=== PATIENT | male | born 1960 | race Hispanic/Latino ===

== ENCOUNTER 2016-08-19 06:35 | Emergency (ER) | payer MEDICARE ==
[2016-08-19 07:54] VITALS: BP 143/82
== END 2016-08-19 10:34 | disposition left against medical advice (07) ==
LOC: ED 06:35
DX: M26.621 Arthralgia of right temporomandibular joint (principal); F90.9 Attention-deficit hyperactivity disorder, unspecified type; Z72.0 Tobacco use; Z91.041 Radiographic dye allergy status; Z88.2 Allergy status to sulfonamides; Z53.21 Procedure and treatment not carried out due to patient leaving prior to being seen by health care provider

== ENCOUNTER 2016-11-09 23:45 | Emergency (ER) | payer MEDICARE ==
[2016-11-10] MEDS ORDERED: NORCO 5/325 PO ONE (00:42)
[2016-11-10] MEDS ORDERED: TORADOL IM ONE (00:42)
--- NOTE | 2016-11-10 00:47 | Emergency Department Report ---
ED ENT HPI - General Chief complaint: Dental/Oral Stated complaint: JAW PAIN Time Seen by Provider: 11/10/16 00:42 Source: patient Mode of arrival: Ambulatory Limitations: No Limitations - History of Present Illness Initial comments: 55-year-old male with past medical history of hypertension presenting to the emergency department complaining that his jaw feels locked up. Patient states symptoms started this morning. No inciting factor. Patient states he's had the symptoms in the past where his jaw which is feels if it's closed shut however he is able to open his jaw but then it seemed to snap back closed again. Patient states he does have a history of grinding his teeth. Patient states this strain is causing pain that travels down to his neck. Patient states he is able to tolerate by liquids and pudding. She states when his jaw closes up and cramps like this only helps as Toradol and narcotics to help open up his jaw again. - Related Data Previous Rx's Medication Instructions Recorded Last Taken Type HYDROcodone/APAP 5-325 [Zurich 1 each PO Q6HR PRN #3 tablet 11/10/16 Unknown Rx 5/325] Allergies Allergy/AdvReac Type Severity Reaction Status Date / Time barium sulfate AdvReac Vomiting Verified 08/19/16 07:54 IV DYE Allergy Anaphylaxis Uncoded 07/12/16 11:11 ED Dental HPI - General Chief complaint: Dental/Oral Stated complaint: JAW PAIN Time Seen by Provider: 11/10/16 00:42 Source: patient Mode of arrival: Ambulatory Limitations: No Limitations - Related Data Previous Rx's Medication Instructions Recorded Last Taken Type HYDROcodone/APAP 5-325 [Zurich 1 each PO Q6HR PRN #3 tablet 11/10/16 Unknown Rx 5/325] Allergies Allergy/AdvReac Type Severity Reaction Status Date / Time barium sulfate AdvReac Vomiting Verified 08/19/16 07:54 IV DYE Allergy Anaphylaxis Uncoded 07/12/16 11:11 ED Review of Systems ROS: Stated complaint: JAW PAIN Other details as noted in HPI Constitutional: denies: chills, fever Eyes: denies: eye pain, eye discharge, vision change ENT: dental pain. denies: ear pain, throat pain, hearing loss, congestion Respiratory: denies: cough, shortness of breath, wheezing Cardiovascular: denies: chest pain, palpitations Endocrine: no symptoms reported Gastrointestinal: denies: abdominal pain, nausea, diarrhea Genitourinary: denies: urgency, dysuria Musculoskeletal: denies: back pain, joint swelling, arthralgia Skin: denies: rash, lesions Neurological: denies: headache, weakness, paresthesias Psychiatric: denies: anxiety, depression Hematological/Lymphatic: denies: easy bleeding, easy bruising ED Past Medical Hx - Past Medical History Previous Medical History?: Yes Hx Psychiatric Treatment: Yes (ADHD) Hx HIV: Yes Additional medical history: LOCKED JAW - Surgical History Past Surgical History?: No - Social History Smoking Status: Current Every Day Smoker Substance Use Type: None - Medications Home Medications: Home Medications Medication Instructions Recorded Confirmed Last Taken Type HYDROcodone/APAP 5-325 [Zurich 1 each PO Q6HR PRN #3 tablet 11/10/16 Unknown Rx 5/325] ED Physical Exam - General Limitations: No Limitations General appearance: alert, in no apparent distress - Head Head exam: Present: atraumatic, normocephalic - Eye Eye exam: Present: normal appearance - ENT ENT exam: Present: mucous membranes moist, other (pt speaks with his jaw clenced however ever few words I do see that there is movement of his mouth. His teeth align appropriately, no evidence of dislocation). Absent: mucous membranes dry - Neck Neck exam: Present: normal inspection - Respiratory Respiratory exam: Present: normal lung sounds bilaterally. Absent: respiratory distress - Cardiovascular Cardiovascular Exam: Present: regular rate, normal rhythm. Absent: systolic murmur, diastolic murmur, rubs, gallop - GI/Abdominal GI/Abdominal exam: Present: soft, normal bowel sounds - Rectal Rectal exam: Present: deferred - Extremities Exam Extremities exam: Present: normal inspection - Back Exam Back exam: Present: normal inspection - Neurological Exam Neurological exam: Present: alert, oriented X3 - Psychiatric Psychiatric exam: Present: normal affect, normal mood - Skin Skin exam: Present: warm, dry, intact, normal color. Absent: rash ED Course Vital Signs 11/10/16 11/10/16 00:11 00:51 Temperature 98.9 F Pulse Rate 92 H Respiratory 20 18 Rate Blood Pressure 143/92 O2 Sat by Pulse 100 Oximetry - Reevaluation(s) Reevaluation #1: 11/10/16 01:33 Patient states symptoms have improved and is requesting discharge home. ED Medical Decision Making - Medical Decision Making 55-year-old male presenting to the emergency department complaining of clenched jaw. This is likely a somatoform disorder. I have low suspicion for dislocation of the jaw as patient's teeth are well aligned and often when he speaks jaw opens appropriately and then closes back again and I witness him grinding on his teeth. States the only thing that helps relieve his symptoms as when he gets Toradol and narcotics, specifically when he gets narcotics take home. - Differential Diagnosis TMJ, mandibular dislocation, dystonia Critical Care Time: No Critical care attestation.: If time is entered above; I have spent that time in minutes in the direct care of this critically ill patient, excluding procedure time. ED Disposition Clinical Impression: Somatoform disorder Disposition: TO HOME OR SELFCARE Is pt being admited?: No Does the pt Need Aspirin: No Condition: Stable Instructions: Toothache (ED) Prescriptions: HYDROcodone/APAP 5-325 [Zurich 5/325] 1 each PO Q6HR PRN #3 tablet PRN Reason: Pain Referrals: PRIMARY CAREMD [Primary Care Provider] - 3-5 Days CHELI KIRKLAND MD, PHD [Staff Physician] - 24 Hours Forms: Work/School Release Form(ED) Time of Disposition: 01:36
[2016-11-10 03:00] VITALS: BP 136/76
== END 2016-11-10 02:59 | disposition home or self-care (01) ==
LOC: ED 23:45
DX: F45.9 Somatoform disorder, unspecified (principal); F17.200 Nicotine dependence, unspecified, uncomplicated
CPT/HCPCS: 96372; 99282; J1885

== ENCOUNTER 2016-12-18 01:28 | Emergency (ER) | payer MEDICARE ==
[2016-12-18 01:43] VITALS: BP 132/84
== END 2016-12-18 05:30 | disposition left against medical advice (07) ==
LOC: ED 01:28
DX: R19.7 Diarrhea, unspecified (principal); Z53.21 Procedure and treatment not carried out due to patient leaving prior to being seen by health care provider

== ENCOUNTER 2016-12-23 17:25 | Emergency (ER) | payer MEDICARE ==
[2016-12-23] MEDS ORDERED: TORADOL IM ONE (20:01)
--- NOTE | 2016-12-23 20:01 | Emergency Department Report ---
HPI - General Chief Complaint: Dental/Oral Time Seen by Provider: 12/23/16 19:36 - HPI HPI: Patient reports that he has TMJ jaw pain. He said he's had this for a while and he is having increasing pain over the last 2 days. He says he has a primary care doctor and that he usually gets a shot of Toradol and then 3 days worth of [place]. He said his pain is 4 out of 10 and achy and worse with opening and closing his mouth. Patient has a history of HIV, GERD, ADHD, TMJ and cervical disc degeneration. Denies any fever or chills. Denies any difficulty swallowing. No mhyr-lth-emqoufk medication use prior to coming to the emergency room. Patient was last here on 11/10/2016 and receive hydrocodone and Motrin. ED Past Medical Hx - Past Medical History Previous Medical History?: Yes Hx GERD: Yes Hx Psychiatric Treatment: Yes (ADHD) Hx HIV: Yes Additional medical history: LOCKED JAW. somatoform disorder. Cervical Spondylosis & disc degeneration - Surgical History Past Surgical History?: Yes - Family History Family history: no significant - Social History Smoking Status: Current Every Day Smoker Substance Use Type: None - Medications Home Medications: Home Medications Medication Instructions Recorded Confirmed Last Taken Type HYDROcodone/APAP 5-325 [[place] 1 each PO Q6HR PRN #3 tablet 11/10/16 Unknown Rx 5/325] Ibuprofen [Motrin 800 MG tab] 800 mg PO Q8HR PRN #15 tablet 12/23/16 Unknown Rx ED Review of Systems ROS: Stated complaint: TMJ Other details as noted in HPI Comment: All other systems reviewed and negative Constitutional: denies: chills, fever ENT: other (jaw pain). denies: ear pain, throat pain, congestion Respiratory: no symptoms reported Cardiovascular: denies: chest pain, palpitations, edema, syncope Gastrointestinal: denies: abdominal pain, nausea, vomiting Musculoskeletal: arthralgia (temporal mandibular area). denies: back pain, joint swelling, myalgia Skin: denies: rash Neurological: denies: headache, weakness, numbness, paresthesias, confusion, abnormal gait, vertigo Physical Exam - Physical Exam Vital Signs: Vital Signs 12/23/16 19:14 Temperature 98.7 F Pulse Rate 79 Respiratory 16 Rate Blood Pressure 124/76 [Right] O2 Sat by Pulse 97 Oximetry General: This is a 56-year-old male in no acute distress. Physical Exam: Head: Normocephalic, atraumatic. No abrasions, laceration or contusion Neck: Supple, No adenopathy. Full range of motion. No C-spine tenderness. Eyes: Rafael sclera nonicteric, no conjunctival injection, bilateral pupils equal and reactive to light. Bilateral EOM intact. Ears: Bilateral TMs pearly pandey, bilaterally EAC without any redness swelling or drainage. No facial deformity noted. Patient able to cut open and close his mouth without any difficulties. Face nontender to palpate Nose: Rafael nasal mucosa without any erythema or congestion. No drainage. Mouth: Moist, No pharyngeal erythema Uvula is midline and oral airways patent. Tongue normal CV:S1, S2. regular rate and rhythm. Lungs: Clear to auscultate to lung jenkins. Normal work of breathing. Abdomen: Soft, normal bowel sounds in all quadrants. No rigidity or distention. Extremity: No clubbing, cyanosis or edema. +2 pulses in all extremities. No neurovascular compromise. Capillary refill is less than 3 seconds. Skin: Clean dry and intact, no rash or lesions. PSYCH: Smiling and appropriate for age ED Course Vital Signs 12/23/16 19:14 Temperature 98.7 F Pulse Rate 79 Respiratory 16 Rate Blood Pressure 124/76 [Right] O2 Sat by Pulse 97 Oximetry - Reevaluation(s) Reevaluation #1: 12/23/16 20:24 Patient given Toradol 60 mg IM in emergency room for pain ED Medical Decision Making - Medical Decision Making ED course: Patient with chronic TMJ with multiple other medical problems. He is here for pain management. He said his TMJ pain has been worsening over the last 2 days. He is requesting an Sedgwick for 3 days. I discussed the patient that he will need to follow-up with his primary care physician and have primary care referral him to a specialist to manage his chronic TMJ. He said he is working on it. Patient has no facial deformity and is able to open and close his mouth without any difficulties. He was given Toradol 60 mg IM in emergency room. Agreement was made that patient will be discharged home in Motrin. Assessment/plan 1. TMJ pain Patient discharged home in stable condition with prescription for Motrin and to follow-up with his primary care physician. Critical care attestation.: If time is entered above; I have spent that time in minutes in the direct care of this critically ill patient, excluding procedure time. ED Disposition Clinical Impression: Temporomandibular joint disorder (TMJ) TMJ arthralgia Qualifiers: Laterality: bilateral Qualified Code(s): M26.623 - Arthralgia of bilateral temporomandibular joint Disposition: DC-01 TO HOME OR SELFCARE Is pt being admited?: No Does the pt Need Aspirin: No Condition: Stable Instructions: Arthralgia (ED), Temporomandibular Disorder (ED) Additional Instructions: Please take Motrin with food Follow-up with her primary care physician regarding chronic TMJ Prescriptions: Ibuprofen [Motrin 800 MG tab] 800 mg PO Q8HR PRN #15 tablet PRN Reason: Pain Referrals: PRIMARY CAREMD [Primary Care Provider] - 12/26/16
[2016-12-23 22:41] VITALS: BP 132/66
== END 2016-12-23 20:40 | disposition home or self-care (01) ==
LOC: ED 17:25
DX: M26.623 Arthralgia of bilateral temporomandibular joint (principal); M26.609 Unspecified temporomandibular joint disorder, unspecified side; K21.9 Gastro-esophageal reflux disease without esophagitis; F17.200 Nicotine dependence, unspecified, uncomplicated
CPT/HCPCS: 96372; 99282; J1885

== ENCOUNTER 2016-12-30 12:41 | Emergency (ER) | payer MEDICARE ==
[2016-12-30] MEDS ORDERED: BENADRYL IV ONE (19:03)
[2016-12-30] MEDS ORDERED: ATARAX PO ONE (19:03)
[2016-12-30] MEDS ORDERED: PEPCID PO ONE (19:03)
[2016-12-30] MEDS ORDERED: TYLENOL PO ONE (19:04)
--- NOTE | 2016-12-30 19:05 | Emergency Department Report ---
- General Chief complaint: Skin Rash Stated complaint: RASH Time Seen by Provider: 12/30/16 18:54 Source: patient Mode of arrival: Ambulatory Limitations: No Limitations - History of Present Illness Initial comments: 56-year-old male past medical history HIV on HAART, ADHD presents with complaint of itchy rash to chest and back times one day. Denies fever or chills. States it is very itchy. States he is homeless. States he has an undetectable viral load and last CD4 was over 300. Denies any fevers or chills no nausea or vomiting. Patient is requesting narcotic pain medicine. Awake alert and oriented 3, patient found sleeping comfortably in room. Eating snacks during interview. MD complaint: rash Onset/Timin -: days(s) Location: chest, back Severity: moderate Severity scale (0 -10): 6 Quality: other (itchy) Associated symptoms: itching - Related Data Previous Rx's Medication Instructions Recorded Last Taken Type HYDROcodone/APAP 5-325 [Kane 1 each PO Q6HR PRN #3 tablet 11/10/16 Unknown Rx 5/325] Ibuprofen [Motrin 800 MG tab] 800 mg PO Q8HR PRN #15 tablet 12/23/16 Unknown Rx Calcium Carb/Mag Ox/Zinc Sulf 1 each PO BID #60 12/30/16 Unknown Rx [Nhchbci-Umwunphlk-Kmty Tablet] Hydrocortisone 1% [Hydrocortisone 1 applicatio TP TID PRN #1 tube 12/30/16 Unknown Rx 1% CREAM] Hydroxyzine HCl 25 mg PO BID PRN #20 tablet 12/30/16 Unknown Rx Naproxen [Naprosyn TAB] 500 mg PO BID PRN #25 tablet 12/30/16 Unknown Rx Permethrin 5% [Acticin 5% CREAM] 1 applicatio TP ONCE #1 tube 12/30/16 Unknown Rx Allergies Allergy/AdvReac Type Severity Reaction Status Date / Time barium sulfate AdvReac Vomiting Verified 12/30/16 13:32 IV DYE Allergy Anaphylaxis Uncoded 12/30/16 13:32 Abscess Boil HPI - HPI Chief Complaint: Skin Rash Stated Complaint: RASH Time Seen by Provider: 12/30/16 18:54 Home Medications: Previous Rx's Medication Instructions Recorded Last Taken Type HYDROcodone/APAP 5-325 [Kane 1 each PO Q6HR PRN #3 tablet 11/10/16 Unknown Rx 5/325] Ibuprofen [Motrin 800 MG tab] 800 mg PO Q8HR PRN #15 tablet 12/23/16 Unknown Rx Calcium Carb/Mag Ox/Zinc Sulf 1 each PO BID #60 12/30/16 Unknown Rx [Unjxgir-Iepmaswne-Ehuf Tablet] Hydrocortisone 1% [Hydrocortisone 1 applicatio TP TID PRN #1 tube 12/30/16 Unknown Rx 1% CREAM] Hydroxyzine HCl 25 mg PO BID PRN #20 tablet 12/30/16 Unknown Rx Naproxen [Naprosyn TAB] 500 mg PO BID PRN #25 tablet 12/30/16 Unknown Rx Permethrin 5% [Acticin 5% CREAM] 1 applicatio TP ONCE #1 tube 12/30/16 Unknown Rx Allergies/Adverse Reactions: Allergies Allergy/AdvReac Type Severity Reaction Status Date / Time barium sulfate AdvReac Vomiting Verified 12/30/16 13:32 IV DYE Allergy Anaphylaxis Uncoded 12/30/16 13:32 ED Review of Systems ROS: Stated complaint: RASH Other details as noted in HPI Constitutional: denies: chills, fever Eyes: denies: eye pain, eye discharge, vision change ENT: denies: ear pain, throat pain Respiratory: denies: cough, shortness of breath, wheezing Cardiovascular: denies: chest pain, palpitations Endocrine: no symptoms reported Gastrointestinal: denies: abdominal pain, nausea, diarrhea Genitourinary: denies: urgency, dysuria Musculoskeletal: denies: back pain, joint swelling, arthralgia Skin: as per HPI, rash. denies: lesions Neurological: denies: headache, weakness, paresthesias Psychiatric: denies: anxiety, depression Hematological/Lymphatic: denies: easy bleeding, easy bruising ED Past Medical Hx - Past Medical History Previous Medical History?: Yes Hx GERD: Yes Hx Psychiatric Treatment: Yes (ADHD) Hx HIV: Yes Additional medical history: LOCKED JAW. somatoform disorder. Cervical Spondylosis & disc degeneration - Surgical History Past Surgical History?: No - Social History Smoking Status: Current Every Day Smoker Substance Use Type: None - Medications Home Medications: Home Medications Medication Instructions Recorded Confirmed Last Taken Type HYDROcodone/APAP 5-325 [Kane 1 each PO Q6HR PRN #3 tablet 11/10/16 Unknown Rx 5/325] Ibuprofen [Motrin 800 MG tab] 800 mg PO Q8HR PRN #15 tablet 12/23/16 Unknown Rx Calcium Carb/Mag Ox/Zinc Sulf 1 each PO BID #60 12/30/16 Unknown Rx [Dkhmvdg-Krumlzmaj-Vlkp Tablet] Hydrocortisone 1% [Hydrocortisone 1 applicatio TP TID PRN #1 tube 12/30/16 Unknown Rx 1% CREAM] Hydroxyzine HCl 25 mg PO BID PRN #20 tablet 12/30/16 Unknown Rx Naproxen [Naprosyn TAB] 500 mg PO BID PRN #25 tablet 12/30/16 Unknown Rx Permethrin 5% [Acticin 5% CREAM] 1 applicatio TP ONCE #1 tube 12/30/16 Unknown Rx ED Physical Exam - General Limitations: No Limitations General appearance: alert, in no apparent distress - Head Head exam: Present: atraumatic, normocephalic - Eye Eye exam: Present: normal appearance, PERRL, EOMI - ENT ENT exam: Present: mucous membranes moist - Neck Neck exam: Present: normal inspection - Respiratory Respiratory exam: Present: normal lung sounds bilaterally. Absent: respiratory distress - Cardiovascular Cardiovascular Exam: Present: regular rate, normal rhythm. Absent: systolic murmur, diastolic murmur, rubs, gallop - GI/Abdominal GI/Abdominal exam: Present: soft, normal bowel sounds - Rectal Rectal exam: Present: deferred - Extremities Exam Extremities exam: Present: normal inspection - Back Exam Back exam: Present: normal inspection - Neurological Exam Neurological exam: Present: alert, oriented X3, CN II-XII intact, normal gait - Psychiatric Psychiatric exam: Present: normal affect, normal mood - Skin Skin exam: Present: warm, dry, intact, normal color, rash (pruritic rash on chest and back and upper extremities no visible vesicular lesions.) ED Course Vital Signs 12/30/16 13:29 Temperature 98.5 F Pulse Rate 90 Respiratory 16 Rate Blood Pressure 116/59 O2 Sat by Pulse 100 Oximetry ED Medical Decision Making - Lab Data Result diagrams: 12/30/16 19:44 12/30/16 19:44 - Medical Decision Making A/P: Scabies rash, incidental hypocalcemia 1-case discussed with attending. Patient is comfortable no chest pain no shortness of breath no palpitations. Provided with calcium carbonate supplementation prescription and advised to follow-up in clinic for repeat labs , informed he has mild hypocalcemia. I advised patient to return to the ED for any palpitations chest pain shortness of breath or generalized weakness. 2-during exam patient was lying comfortably on bed itching of his chest but had no other complaints. Eating snacks comfortably during entire interview process. Patient requesting narcotic pain medicine. When I asked him to elaborate why he needed narcotics patient was unable to give me a direct answer. I suspect patient may be exhibiting drug-seeking behavior 3-hydroxyzine when necessary, naproxen when necessary, hydrocortisone when necessary 4-empiric treatment for scabies with permethrin cream Critical care attestation.: If time is entered above; I have spent that time in minutes in the direct care of this critically ill patient, excluding procedure time. ED Disposition Clinical Impression: Scabies, Rash and nonspecific skin eruption, Hypocalcemia Disposition: TO HOME OR SELFCARE Is pt being admited?: No Does the pt Need Aspirin: No Condition: Stable Instructions: Scabies (ED), Hypocalcemia (ED) Prescriptions: Calcium Carb/Mag Ox/Zinc Sulf [Wogxpeo-Caedarcxp-Gfnh Tablet] 1 each PO BID #60 Hydrocortisone 1% [Hydrocortisone 1% CREAM] 1 applicatio TP TID PRN #1 tube PRN Reason: Itching Hydroxyzine HCl 25 mg PO BID PRN #20 tablet PRN Reason: Itching Naproxen [Naprosyn TAB] 500 mg PO BID PRN #25 tablet PRN Reason: Pain Permethrin 5% [Acticin 5% CREAM] 1 applicatio TP ONCE #1 tube Referrals: [facility] [Provider Group] - 3-5 Days [facility] [Provider Group] - 3-5 Days [facility] [Outside] - 3-5 Days Time of Disposition: 22:17
[2016-12-30] MEDS ORDERED: TORADOL IV ONE (19:33)
[2016-12-30 19:58] LABS: Basophils % (Auto) 0.5 % (0.0-1.8); Eosinophils % (Auto) 9.4 % (0.0-4.3); Hematocrit 30.1 % (35.5-45.6); Hemoglobin 9.8 gm/dl (11.8-15.2); Mean Corpuscular HGB Conc 33 % (32-34); Mean Corpuscular Hemoglobin 33 pg (28-32); Mean Corpuscular Volume 101 fl (84-94); Platelet Count 151 K/mm3 (140-440); Red Blood Count 2.98 M/mm3 (3.65-5.03); Red Cell Distribution Width 16.4 % (13.2-15.2); White Blood Count 2.5 K/mm3 (4.5-11.0)
[2016-12-30 20:18] LABS: Anion Gap 15 mmol/L; BUN/Creatinine Ratio 15.55; Blood Urea Nitrogen 14 mg/dL (9-20); Calcium 7.6 mg/dL (8.4-10.2); Carbon Dioxide 26 mmol/L (22-30); Chloride 99.1 mmol/L (98-107); Glucose 91 mg/dL (75-100); Potassium 3.9 mmol/L (3.6-5.0); Sodium 136 mmol/L (137-145)
[2016-12-31 01:20] VITALS: BP 137/67
== END 2016-12-30 21:50 | disposition home or self-care (01) ==
LOC: ED 12:41
DX: B86 Scabies (principal); R21 Rash and other nonspecific skin eruption; E83.51 Hypocalcemia; K21.9 Gastro-esophageal reflux disease without esophagitis; F90.9 Attention-deficit hyperactivity disorder, unspecified type; F17.200 Nicotine dependence, unspecified, uncomplicated; Z88.8 Allergy status to other drugs, medicaments and biological substances; Z91.041 Radiographic dye allergy status
CPT/HCPCS: 36415; 80048; 85025; 96374; 96375; 99283; J1200; J1885

== ENCOUNTER 2017-01-07 13:23 | Emergency (ER) | payer MEDICARE ==
[2017-01-07 14:12] VITALS: BP 128/83
[2017-01-07] MEDS ORDERED: MOTRIN PO ONE (16:51)
--- NOTE | 2017-01-07 22:46 | Emergency Department Report ---
Entered by SHONA POWER, acting as scribe for RM LEVY NP. - General Chief complaint: Skin/Abscess/Foreign Body Stated complaint: BOILS UNDER ARMS Time Seen by Provider: 01/07/17 16:22 Source: patient Mode of arrival: Ambulatory Limitations: No Limitations - History of Present Illness Initial comments: 56 y/o male presents to the ED c/o cysts under both arms x 2 day. Associated symptoms include pain but denies fever, chills, nausea and vomiting. Pain is described as aching, 10/10 and worse on the left side. Patient states he noticed cysts under right arm today and cysts under left arm yesterday. States painful to put arms down. Denies similar symptoms in the past. No alleviating or aggravating factors. Allergic to barium sulfate. MD complaint: abscess/boil, other (cysts) -: days(s) (2) [facility]: [facility] Severity: severe Severity scale (0 -10): 10 Quality: aching Consistency: constant Improves with: none Worsens with: none Context: none Associated symptoms: other (denies:fever, chills, nausea and vomiting) Treatments Prior to Arrival: none - Related Data Previous Rx's Medication Instructions Recorded Last Taken Type Calcium Carb/Mag Ox/Zinc Sulf 1 each PO BID #60 12/30/16 Unknown Rx [Bhndjkf-Fqwhszcex-Bbox Tablet] Hydrocortisone 1% [Hydrocortisone 1 applicatio TP TID PRN #1 tube 12/30/16 Unknown Rx 1% CREAM] Hydroxyzine HCl 25 mg PO BID PRN #20 tablet 12/30/16 Unknown Rx Acetaminophen/Codeine [Tylenol #3] 1 tab PO Q6H PRN #8 tab 01/07/17 Unknown Rx Cephalexin [Keflex] 500 mg PO Q6HR #40 capsule 01/07/17 Unknown Rx Ibuprofen [Motrin] 600 mg PO Q8H PRN #15 tablet 01/07/17 Unknown Rx Sulfamethoxazole/Trimethoprim 1 each PO BID #20 tablet 01/07/17 Unknown Rx [Bactrim DS TAB] Allergies Allergy/AdvReac Type Severity Reaction Status Date / Time barium sulfate AdvReac Vomiting Verified 12/30/16 13:32 IV DYE Allergy Anaphylaxis Uncoded 12/30/16 13:32 Abscess Boil HPI - HPI Chief Complaint: Skin/Abscess/Foreign Body Stated Complaint: BOILS UNDER ARMS Time Seen by Provider: 01/07/17 16:14 Home Medications: Previous Rx's Medication Instructions Recorded Last Taken Type Calcium Carb/Mag Ox/Zinc Sulf 1 each PO BID #60 12/30/16 Unknown Rx [Yedifnw-Nmbhtjzgs-Daot Tablet] Hydrocortisone 1% [Hydrocortisone 1 applicatio TP TID PRN #1 tube 12/30/16 Unknown Rx 1% CREAM] Hydroxyzine HCl 25 mg PO BID PRN #20 tablet 12/30/16 Unknown Rx Acetaminophen/Codeine [Tylenol #3] 1 tab PO Q6H PRN #8 tab 01/07/17 Unknown Rx Cephalexin [Keflex] 500 mg PO Q6HR #40 capsule 01/07/17 Unknown Rx Ibuprofen [Motrin] 600 mg PO Q8H PRN #15 tablet 01/07/17 Unknown Rx Sulfamethoxazole/Trimethoprim 1 each PO BID #20 tablet 01/07/17 Unknown Rx [Bactrim DS TAB] Allergies/Adverse Reactions: Allergies Allergy/AdvReac Type Severity Reaction Status Date / Time barium sulfate AdvReac Vomiting Verified 12/30/16 13:32 IV DYE Allergy Anaphylaxis Uncoded 12/30/16 13:32 ED Review of Systems Comment: All other systems reviewed and negative Constitutional: denies: chills, fever Gastrointestinal: denies: nausea, vomiting Skin: other (bialteral cysts under each arm, pain) ED Past Medical Hx - Past Medical History Hx GERD: Yes Hx Psychiatric Treatment: Yes (ADHD) Hx HIV: Yes Additional medical history: LOCKED JAW. somatoform disorder. Cervical Spondylosis & disc degeneration - Social History Smoking Status: Never Smoker Substance Use Type: None - Medications Home Medications: Home Medications Medication Instructions Recorded Confirmed Last Taken Type Calcium Carb/Mag Ox/Zinc Sulf 1 each PO BID #60 12/30/16 Unknown Rx [Zhedbyy-Cbntppotf-Hqpn Tablet] Hydrocortisone 1% [Hydrocortisone 1 applicatio TP TID PRN #1 tube 12/30/16 Unknown Rx 1% CREAM] Hydroxyzine HCl 25 mg PO BID PRN #20 tablet 12/30/16 Unknown Rx Acetaminophen/Codeine [Tylenol #3] 1 tab PO Q6H PRN #8 tab 01/07/17 Unknown Rx Cephalexin [Keflex] 500 mg PO Q6HR #40 capsule 08/26/17 Unknown Rx Ibuprofen [Motrin] 600 mg PO Q8H PRN #15 tablet 01/07/17 Unknown Rx Sulfamethoxazole/Trimethoprim 1 each PO BID #20 tablet 01/07/17 Unknown Rx [Bactrim DS TAB] ED Physical Exam - General Limitations: No Limitations General appearance: alert, in no apparent distress - Head Head exam: Present: atraumatic, normocephalic, normal inspection - Eye Eye exam: Present: normal appearance, PERRL, EOMI. Absent: scleral icterus, conjunctival injection, nystagmus, periorbital swelling, periorbital tenderness - ENT ENT exam: Present: normal exam, normal orophraynx, mucous membranes moist, normal external ear exam - Neck Neck exam: Present: normal inspection, full ROM. Absent: tenderness, meningismus, lymphadenopathy, thyromegaly - Respiratory Respiratory exam: Present: normal lung sounds bilaterally. Absent: respiratory distress, wheezes, rales, rhonchi, stridor, chest wall tenderness, accessory muscle use, decreased breath sounds, prolonged expiratory - Cardiovascular Cardiovascular Exam: Present: regular rate, normal rhythm, normal heart sounds. Absent: bradycardia, tachycardia, irregular rhythm, systolic murmur, diastolic murmur, rubs, gallop - GI/Abdominal GI/Abdominal exam: Present: soft. Absent: tenderness, guarding, rebound - Extremities Exam Extremities exam: Present: normal inspection, full ROM, normal capillary refill. Absent: tenderness, pedal edema, joint swelling, calf tenderness - Back Exam Back exam: Present: normal inspection, full ROM. Absent: tenderness, CVA tenderness (R), CVA tenderness (L), muscle spasm, paraspinal tenderness, vertebral tenderness, rash noted - Neurological Exam Neurological exam: Present: alert, oriented X3 - Psychiatric Psychiatric exam: Present: normal affect, normal mood - Skin Skin exam: Present: warm, dry, intact, other (3 small cysts under right arm, 1 cm mass under left arm, firm, no induration, <1 cm mass under left arm) ED Course Vital Signs 01/07/17 01/07/17 01/07/17 14:10 17:02 17:05 Temperature 97.4 F L Pulse Rate 82 Respiratory 18 16 14 Rate Blood Pressure 128/83 O2 Sat by Pulse 100 Oximetry - Reevaluation(s) Reevaluation #1: 01/07/17 16:57 abscess to L axilla not ready for I and D. I and D not done. PT given strict return precautions. PT verbalizes understanding. - Pulse Oximetry Interpretation Digit-Finger Initial Pulse Oximetry Readin Actions Taken: none ED Medical Decision Making - Differential Diagnosis abscess, cellulitis Critical Care Time: No ED Disposition Clinical Impression: Abscess, Hidradenitis axillaris Disposition: - TO HOME OR SELFCARE Is pt being admited?: No Does the pt Need Aspirin: No Condition: Stable Instructions: Abscess (ED) Additional Instructions: No driving or Alcohol if you need to take Tylenol #3 to control your pain try treating your pain with Motrin prior to taking Tylenol #3 Warm compresses at least 4 times a day Return to the ED in 2 days for recheck Return sooner if you develop fevers, chills, nausea or vomiting Prescriptions: Acetaminophen/Codeine [Tylenol #3] 1 tab PO Q6H PRN #8 tab PRN Reason: Pain , Severe (7-10) Cephalexin [Keflex] 500 mg PO Q6HR #40 capsule Ibuprofen [Motrin] 600 mg PO Q8H PRN #15 tablet PRN Reason: Pain Sulfamethoxazole/Trimethoprim [Bactrim DS TAB] 1 each PO BID #20 tablet Referrals: [facility] [Outside] - 3-5 Days PRIMARY CARE, [Primary Care Provider] - 3-5 Days APRIL WEN MD [Staff Physician] - 3-5 Days RAY PAL MD [Staff Physician] - 3-5 Days This documentation as recorded by the JANNET ambrocio ELIZABETH,accurately reflects the service I personally performed and the decisions made by ,RM LEVY NP.
== END 2017-01-07 17:03 | disposition home or self-care (01) ==
LOC: ED 13:23
DX: L02.412 Cutaneous abscess of left axilla (principal); L73.2 Hidradenitis suppurativa; K21.9 Gastro-esophageal reflux disease without esophagitis; F90.9 Attention-deficit hyperactivity disorder, unspecified type; Z91.041 Radiographic dye allergy status
CPT/HCPCS: 99282